=== PATIENT | male | born 1995 | race African-American/Black ===

== ENCOUNTER 2019-07-05 12:06 | Emergency (ER) | payer MEDICAID ==
[~2019-07-05] VITALS: Ht 180.3 cm; Wt 77.3 kg
[2019-07-05] MEDS ORDERED: BACITRACIN 0.9 GM PACKET OINTMENT TP ONE (12:45)
[2019-07-05] MEDS ORDERED: PERTUSS(ACELL),DIPH,TET VAC/PF 0.5 ML VIAL IM ONE (12:45)
[2019-07-05] MEDS ORDERED: LIDOCAINE 1%/EPI 1:200,000/PF 10 ML VIAL INJ ONE ×2 (12:45→15:15)
[2019-07-05] MEDS ORDERED: GENTAMICIN 80 MG/NACL ISO-OSM 50 ML IV ONE (15:15)
[2019-07-05] MEDS ORDERED: CeFAZolin 2 GM/DEXTROSE 50 ML IV ONE (15:15)
[2019-07-05 17:00] VITALS: BP 139/60
== END 2019-07-05 16:54 | disposition home or self-care (01) ==
LOC: EMS 12:06
DX: S51.812A Laceration without foreign body of left forearm, initial encounter (principal); R03.0 Elevated blood-pressure reading, without diagnosis of hypertension; W45.8XXA Other foreign body or object entering through skin, initial encounter; Y93.89 Activity, other specified; Y92.89 Other specified places as the place of occurrence of the external cause; Y99.8 Other external cause status
CPT/HCPCS: 12002; 73090; 90471; 90715; 96365; 96367; 99284; J0690; J1580; J3490; 29105; 96368